=== PATIENT | male | born 1960 | race Caucasian/White ===

== ENCOUNTER → 2016-12-20 | Outpatient (CLI) | payer OTHER, MEDICARE ==
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
== END | disposition home or self-care (01) ==
LOC: RADCTMAIN 08:35
PROVIDERS: ATTEND Family Medicine
DX: S02.91XA Unspecified fracture of skull, initial encounter for closed fracture (principal)
CPT/HCPCS: 70450